=== PATIENT | male | born 1940 | race Caucasian/White ===

== ENCOUNTER 2025-01-15 11:26 | Outpatient (AMB) | payer MEDICARE, OTHER, SELFPAY ==
--- OUTSIDE RECORDS SUMMARY | 2024-12-19 09:15 | XMS_ITS ---
Author Organization [facility] [place] Address [address] [place] [address] Care Team Providers Care Typesetting Machine Tender Name Role Phone Kong Kern Unavailable [phone] Allergies Allergen (clinical drug ingredient) Drug/Non Drug Allergy documented on EMR Reaction Allergy Type Onset Date Status Cymbalta Unknown Drug Allergy Active REASON FOR VISIT FMLA, more tired and more confusion, DARK URINE Medications Medication SIG (Take, Route, Frequency, Duration) Notes Start Date End Date Status OptiChamber Advantage-Lg Mask Active OLANZapine 7.5 MG Tablet 1 tablet Orally Once a day Active Loratadine 10 MG Tablet 1 tablet Orally Once a day Active Lisinopril 30 MG Tablet 1 tablet Orally Once a day Active Finasteride 5 MG Tablet 1 tablet Orally Once a day Active Chlorthalidone 25 MG Tablet 1 tablet in the morning with food Orally Active Atorvastatin Calcium 40 MG Tablet 1 tablet Orally Once a day Active Tamsulosin HCl 0.4 MG Capsule 1 capsule Orally Once a day Active Albuterol Sulfate HFA 108 (90 Base) MCG/ACT Aerosol Solution 1 puff as needed Inhalation every 4 hrs Active Digoxin 125 MCG Tablet 1 tablet Orally Active Eliquis 5 MG Tablet as directed Orally Active DULoxetine HCl 30 MG Capsule Delayed Release Particles 1 capsule Orally Once a day Active Social History Section Notes: DENIES SMOKING DENIES DRINKING CAFFEINE 1/2 CUP DAILY COFFEE Vital Signs Temperature 95.7 degrees Fahrenheit 12/20/19 25 Blood pressure systolic 121 mm Hg 12/20/19 25 Blood pressure diastolic 82 mm Hg 025 Heart Rate 75 /min 12/19/2024 Respiratory Rate 12 /min 12/19/2024 Height 72 in 12/19/2024 Weight 200 lbs 12/19/2024 BMI 27.12 kg/m2 12/19/2024 Oximetry 95 % 12/19/2024 Height-cm 182.88 cm 12/19/2024 Weight-kg 90.72 kg 12/19/2024 Encounters Encounter Location Date Provider Diagnosis [facility] [place] [address] [place] [address] 12/19/2024 Kong Kern Assessments Encounter Date Diagnosis (ICD Code) Assessment Notes Treatment Notes Treatment Clinical Notes Section Notes 12/19/2024 LABS URIN E Plan Of Treatment Next Appt Details Provider Name:Kong Kern , 02/07/2025 09:45:00 AM, [address], [address], [place], [address], [phone] Progress Notes * MEGAN GUNNDOB:[birth year] (84 yo M)Acc No.[id number]:12/19/2024 Progress Notes Patient: MEGAN WATSON Provider: Stella DONOVAN :1940 A ge:84 Y S ex:Male Date:12/19/2024 Address:[address] [place], [place] [id number] Subjective: * Chief Complaints: * F MLAMore tired and more confusionDARK URINE * Medical History: Dr Munson-urology DR VENTURA NEUROLOGY DR OSMAN CT PRIMARY DR IZAGUIRRE PODIATRY * Surgical History: KIDNEY REMOVED 2009 Surgical History verified. * Hospitalization/Major Diagno stic Procedure: KIDNEY REMOVED Hospitalization Verified. * Family History: HEALTH CARE PROXY AKHIL GUNN-. * Social History: D ENIES SMOKING DENIES DRINKING CAFFEINE 1/2 CUP DAILY COFFEE. * Medications: T akingTamsulosin HCl 0.4 MG Capsule 1 capsule Orally Once a day OptiChamber Advantage-Lg Mask OLANZapine 7.5 MG Tablet 1 tablet Orally Once a day Loratadine 10 MG Tablet 1 tablet Orally Once a day Lisinopril 30 MG Tablet 1 tablet Orally Once a day Finasteride 5 MG Tablet 1 tablet Orally Once a day Eliquis 5 MG Tablet as directed Orally DULoxetine HCl 30 MG Capsule Delayed Release Particles 1 capsule Orally Once a day Digoxin 125 MCG Tablet 1 tablet Orally Chlorthalidone 25 MG Tablet 1 tablet in the morning with food Orally Atorvastatin Calcium 40 MG Tablet 1 tablet Orally Once a day Albuterol Sulfate HFA 108 (90 Base) MCG/ACT Aerosol Solution 1 puff as needed Inhalation every 4 hrs Taking Tamsulosin HCl 0.4 MG Capsule 1 capsule Orally Once a day Taking OptiChamber Advantage-Lg Mask Taking OLANZapine 7.5 MG Tablet 1 tablet Orally Once a day Taking Loratadine 10 MG Tablet 1 tablet Orally Once a day Taking Lisinopril 30 MG Tablet 1 tablet Orally Once a day Taking Finasteride 5 MG Tablet 1 tablet Orally Once a day Taking Eliquis 5 MG Tablet as directed Orally Taking DULoxetine HCl 30 MG Capsule Delayed Release Particles 1 capsule Orally Once a day Taking Digoxin 125 MCG Tablet 1 tablet Orally Taking Chlorthalidone 25 MG Tablet 1 tablet in the morning with food Orally Taking Atorvastatin Calcium 40 MG Tablet 1 tablet Orally Once a day Taking Albuterol Sulfate HFA 108 (90 Base) MCG/ACT Aerosol Solution 1 puff as needed Inhalation every 4 hrs * Allergies: C ymbaltayesAllergies Verified. Objective: * Vitals: B P: 121/82 mm Hg, HR: 75 /min, RR: 12 /min, Temp: 95.7 F, Oxygen sat %: 95 %, Ht: 72 in, Wt: 200 lbs, BMI: 27.12 Index, Wt-k.72 kg, Ht-cm: 182.88 cm, Body Surface Area: 2.14. Assessment: * Assessment: LABS URINE * Electronic signature of Gadiel Kern PA-C on 01/15/2025 at 12:40 PM EDT Sign off status: Pending * Provider: Stella DONOVAN Date: 12/19/2024 Generated for Meg euceda/Enio/Delvis on: 01/15/2025 12:40 PM EDT
--- OUTSIDE RECORDS SUMMARY | 2025-01-03 08:58 | XMS_ITS ---
Author Name [facility] Organization [facility] Address [address] [place] [address] Care Team Providers Care Nremt Name Role Phone MEGAN OSMAN Primary Care Provider Unavailabl e Insurance Providers: All historical and current Section Date Range: From patient's date of to the date document was created. This section includes the names of all active insurance providers for the patient. Insurance Provider Type of Coverage Plan Name Start of Policy Coverage End of Policy Coverage Group Number Member ID Insurance Provider's Telephone Number Policy Varela's Name Patient's Relationship to Policy Varela MEDICARE (WNR) MEDICARE (M) PART A Mar 20, 2005 PART A [id number] SUZIET III,HOWAR D PATIENT MEDICARE (WNR) MEDICARE (M) PART B Mar 20, 2005 PART B [id number] MERCHANT III,HOWAR D PATIENT MEDICARE (WNR) MEDICARE (M) PART A Mar 20, 2005 PART A [id number] [phone] [id number] MEGAN GUNN PATIENT MEDICARE (WNR) MEDICARE (M) PART B Mar 20, 2005 PART B [id number] SUZIEMEGAN Newman PATIENT FOR LIFE TFL* Jan 23, 2010 [id number] ZEYADROMINAMEGAN Newman PATIENT [place] [id number] PRIME ACTIV E DUTY Jun 20, 2017 NONE [id number] MEGAN GUNN PATIENT -FO R-LIFE TFL [facility] Jan 26, 2012 [id number] MEGAN GUNN PATIENT Selected Encounter This section includes the information on record at [place] for the Encounter. Date/Time Encounter Type Encounter Description Reason Provider Source Jan 03, 2025 12:58 PM CASE MANAGEMENT PRIMARY CARE/MEDICINE ICD-10-CM Z71.9 Counseling, unspecified JEANINE VALERA [facility] Encounter Template Text not used by [place] Assessments - Encounter Diagnoses This section includes the primary and secondary diagnoses documented for the Encounter. Date/Time Primary/Secondary Diagnosis Diagnosis Name Provider Source Jan 03, 2025 03:10 PM PRIMARY Counseling, unspecified TOSIN VALERA [facility] Plan of Treatment: Future Appointments (+ 6 months) and Future Tests (+/- 45 days) The Plan of Treatment section includes future care activities for the patient from all [place] treatmentfacilities. This section includes future appointments and future orders which are active, pending or scheduled. Future Appointments This section includes appointments that were scheduled to occur 6 months from the date of the Encounter, up to a maximum of 20 appointments. The data comes from all [place] treatment facilities. Appointment Date/Time Appointment Type Appointme nt Facility Name Feb 25, 2025 10:30 AM AM[facility]ORY [facility] MEDICINE [facility] Mar 28, 2025 09:00 AM AMBULATORY - MEDICINE [facility] Social History: Smoking Status (Most current) and Tobacco Use (All prior to encounter date) This section includes the most current, and the historical, smoking and tobacco- related health factors from the [place] facility where the Encounter took place. Current Smoking Status This section includes the most current smoking, or tobacco-related health factor, from the [place] facility where the Encounter took place. Date/Time Current Smoking Status Comment Facil ity Nov 23, 2024 10:00 AM VA-TOBACCO USE FOR PRASHANT CIGARETTES [facility] Tobacco Use History This section includes a history of the smoking, or tobacco-related health factors, that were collected on or before the date of the Encounter. The data comes from the [place] facility where the Encounter took place. Date/Time Smoking Status/Tobac co Use Comment Facility Nov 23, 2024 10:00 AM VA-TOBACCO USE FORMER CIGARETTES [facility] Nov 25, 2023 10:00 AM VA-TOBACCO FORMER USER [facility] [place] [facility] Nov 25, 2023 10:00 AM VA-TOBACCO QUIT 15 YRS OR MORE [facility] [place] [facility] Nov 19, 2022 10:00 AM VA-TOBACCO FORMER USER [facility] [place] [facility] Nov 19, 2022 10:00 AM VA-TOBACCO QUIT 15 YRS OR MORE [facility] [place] [facility] Nov 20, 2021 10:00 AM VA-TOBACCO FORMER USER [facility] [place] [facility] Nov 20, 2021 10:00 AM VA-TOBACCO QUIT 15 YRS OR MORE [facility] [place] [facility] Nov 21, 2020 09:00 AM VA-TOBACCO FORMER USER [facility] [place] [facility] Nov 21, 2020 09:00 AM VA-TOBACCO QUIT 5 TO < 15 YRS [facility] [place] [facility] Sep 28, 2019 02:38 PM VA-TOBACCO NEVER USED [facility] [place] [facility] Sep 12, 2018 02:20 PM VA-TOBACCO FORMER USER [facility] [place] [facility] Sep 12, 2018 02:20 PM VA-TOBACCO QUIT 5 TO < 15 YRS [facility] [place] [facility] October 19, 2017 10:33 AM QUIT TOBACCO USE > 7 YEARS AGO PT QUIT 9 YRS AGO [facility] [place] [facility] November 16, 2016 11:11 AM QUIT TOBACCO USE > 7 YEARS AGO PT QUIT SMOKING 9 YRS AGO. [facility] [place] [facility] November 12, 2015 10:18 AM LIFETIME NON-TOBACCO USER [facility] [place] [facility] November 12, 2014 08:20 AM QUIT TOBACCO USE 1-7 YEARS AGO [facility] [place] [facility] Feb 22, 2013 09:06 AM QUIT TOBACCO USE 1-7 YEARS AGO PT QUIT 4 YEARS AGO. [facility] [place] [facility] Jan 20, 2012 08:53 AM QUIT TOBACCO USE 1-7 YEARS AGO [facility] Apr 16, 2002 02:26 PM CURRENT SMOKER smoker 40 years, requesting smoking cessation [facility] Encounter Notes: All associated encounter notes This section contains the clinical notes associated to the Encounter. Date/Time Encounter Note(s) Provider Source Jan 03, 2025 12:59 PM SOCIAL WORK NOTE: LOCAL TITLE: SOCIAL WORK NOTE STANDARD TITLE: SOCIAL WORK NOTE DATE OF NOTE: JAN 03, 2025@12:59 ENTRY DATE: JAN 03, 2025@12:59:40 AUTHOR: VINEET VALERA EXP COSIGNER: URGENCY: STATUS: COMPLETED Fisheries Management Biologist spoke to Akhil (/no auth) who reported I am not ready to have him go to a facility but I do need help as I was recently diagnosed with cancer and it will be hard for me to care for him and myself at the same time . We discussed options. Akhil decided we may have to private pay,Zaira archer came out 2 years ago and told us we make too much money. [facility] Encouraged Akhil to contact [employer], inquire about claim for increased service connection. Akhil requested caregiver and respite information emailed to [email or web address] which was successfully sent. Encouraged to contact senior copywriter and [place] prn. /ca/ JUNE ROJAS [facility] OFFICE MANAGER Signed: 01/03/2025 15:11 VINEET VALERA [facility]
--- NOTE | 2025-01-15 11:33 | MHC.OFFVIS ---
Intake Visit Reasons: 6M AD Accompanied by: Spouse Allergies No Known Allergies Allergy (Verified 01/15/25 11:33) Medication List - Last Reconciled 01/15/25 by Ruby Phillip CNP apixaban (Eliquis) 5 mg PO BID atorvastatin 40 mg PO DAILY chlorthalidone 25 mg PO DAILY digoxin PO duloxetine 30 mg PO DAILY finasteride 5 mg PO DAILY lisinopril 30 mg PO DAILY loratadine 10 mg PO DAILY olanzapine 7.5 mg PO BEDTIME sertraline 50 mg PO DAILY tamsulosin mg PO HPI Comments Details: He was here with his . He will be moving into assisted living facility in the next few weeks as his will be starting treatment for cancer. Memory declining, says he is very forgetful. Needs cueing and some help with dressing. Going to day program 3 days/week which he enjoys, playing bingo. Walking with walker, no falls. Appetite was okay. Mood was okay. No hallucinations or delusions. Sleep was okay. Seen at [facility] in 10/2023 for SI after he was tapered off sertraline and was off medication for few weeks. No SI/HI. Mood is much better with duloxetine. Around 2018, he began with short-term memory problems, particularly getting stuck for words, misplacing things, having some right/left orientation problems, judging distances, and having some difficulty with balance. Hx of hypertension, atrial fibrillation, and disrupted sleep. His ex- in [place]. His daughters live in [facility] and [place]. He tried memantine in the past with side effects. [facility] Medical History (Updated 01/15/25 @ 11:37 by Ruby Phillip CNP) Alzheimer dementia VINCE (obstructive sleep apnea) MCI (mild cognitive impairment) Ataxia Peripheral neuropathy Vascular dementia Review of Systems Const Denies chills, Denies daytime sleepiness, Reports difficulty sleeping, Denies fatigue, Denies fever(s), Denies frequent falls, Denies headache(s), Denies increased appetite, Denies poor appetite, Denies snoring, Denies weakness, Denies weight gain and Denies weight loss Eyes Denies loss of vision ENT Denies vertigo, Reports dizziness, Denies headache(s) and Denies neck pain Card Denies chest pain at rest, Denies chest pain with activity, Denies syncope, Denies leg edema, Denies palpitations, Denies dyspnea and Denies dyspnea on exertion Resp Denies cough, Denies dyspnea, Denies dyspnea on exertion and Denies snoring GI Denies abdominal pain, Denies constipation, Denies heartburn, Denies diarrhea and Denies nausea Reports urinary frequency, Denies urinary incontinence and Denies urinary urgency Musc Denies abnormal gait, Denies back pain, Denies myalgias, Denies arthralgias, Denies neck pain, Denies numbness and Denies tingling Neuro Denies abnormal gait, Denies vertigo, Reports dizziness, Denies syncope, Denies frequent falls, Denies headache(s), Denies lack of coordination, Denies loss of vision, Reports memory loss, Denies numbness, Denies Other visual disturbances, Denies restless legs, Denies seizure-like activity, Denies tingling, Denies paresthesias, Denies tremor(s) and Denies weakness Psych Denies anxiety, Reports depression, Denies auditory hallucinations, Reports memory loss and Denies visual hallucinations Endo Denies fatigue and Denies palpitations Physical Exam Const Other: General Appearance:? normal, in no acute distress. Heart:? S1, S2 normal, no murmurs. Lungs:? clear anteriorly and posteriorly. Musculoskeletal:? normal. Extremities:? no edema. Psych:? alert, as below Neuro Other: Abnormal Neurological Findings:?Walking with walker. MMSE 20/30. Mental Status: alert, as below. Cranial Nerves: Pupils are equal, round, and reactive to light. External ocular muscles are intact. Visual manuel are full, no ptosis. Face is symmetrical, no facial weakness or droop. Facial sensations are normal. Tongue protrudes in midline. Palate elevates symmetrically. Shoulder shrugging is normal Motor Examination: Normal muscle tone, bulk and strength. No atrophy or fasciculations. No drift of the extended upper extremities. DTR 2+. Plantars are flexor. Straight Leg Raisin degrees. Sensory Exam: Normal light touch, temperature, pinprick, vibration, and joint-position sensations. Rhomberg sign is absent. Coordination: No ataxia. No titubation. Ojzlxl-ir-xacb, gqvz-aabv-jkyr test, and rapid alternating movements were normal. Gait Exam: With walker. Cerebellar Signs: Czvhzo-ka-nmbz and irfj-zo-ccii is normal. No dysdiadochokinesia. Extrapyramidal System: No tremor, rigidity with normal facial expressions. No bradykinesia. No bradyphrenia. Normal arm swing and posture. No propulsion or retropulsion. Speech: Normal. No dysphasia or dysarthria. MMSE Level of Consciousness: Alert. Orientation: Knows correct year. Does not know year, month, date, or day. Knows correct city, county and state. Knows correct location and floor. Registration: Able to register 3 objects. Attention: Serial 7's performed accurately to 86. Recall: Able to recall 0 out of 3 objects. Language: Normal spontaneous speech, fluency, repetition, naming, comprehension, reading, and writing. Total Score: 20/30. Results Reviewed Results Reviewed: NCV/EMG LE 03/27/19 Sensory greater than motor peripheral neuropathy in the lower extremities. Normal EMG in the right L4-S1 innervated muscles. MRI shows moderate cerebral atrophy and white matter chronic microvacsular disease Assessment & Plan Assessment & Plan (1) Alzheimer dementia: Code(s): G30.9 - Alzheimer's disease, unspecified; F02.80 - Dementia in other diseases classified elsewhere, unspecified severity, without behavioral disturbance, psychotic disturbance, mood disturbance, and anxiety Category: Medical Qualifiers: Alzheimer's disease onset: unspecified onset Dementia severity: unspecified severity Dementia behavioral or psychological symptom: unspecified whether behavioral, psychotic, or mood disturbance or anxiety Qualified Code(s): G30.9 - Alzheimer's disease, unspecified; F02.80 - Dementia in other diseases classified elsewhere, unspecified severity, without behavioral disturbance, psychotic disturbance, mood disturbance, and anxiety Plan: Continue current treatment. Stay physically and socially active, use walker. (2) Peripheral neuropathy: Code(s): G62.9 - Polyneuropathy, unspecified Category: Medical Qualifiers: Peripheral neuropathy type: polyneuropathy, unspecified Qualified Code(s): G62.9 - Polyneuropathy, unspecified Plan Meds tried: memantine (side effects) Coding Level of Care Code Est Pt Level 4 (23099) Diagnoses Alzheimer's dementia, unspecified dementia severity, unspecified timing of dementia onset, unspecified whether behavioral, psychotic, or mood disturbance or anxiety G30.9; F02.80 Alzheimer's disease onset: unspecified onset Dementia severity: unspecified severity Dementia behavioral or psychological symptom: unspecified whether behavioral, psychotic, or mood disturbance or anxiety Peripheral polyneuropathy G62.9 Peripheral neuropathy type: polyneuropathy, unspecified
--- OUTSIDE RECORDS SUMMARY | 2025-01-15 12:40 | XMS_ITS | Clinical Summary ---
Author Organization [facility] Address [address] [place] [address] Care Team Providers Care Cell Feed Department Supervisor Name Role Phone Devyn Casas MD Primary Care Provider Allergies No known active allergies Medications Medication Sig Dispensed Refills Start Date End Date Status ATORVASTATIN CALCIUM PO Take by mouth. 0 Active digoxin (LANOXIN) 125 MCG tablet Take 1 tablet (125 mcg total) by mouth daily. 0 Active apixaban (ELIQUIS) 5 MG TABS tablet Take by mouth every 12 (twelve) hours. 0 Active lisinopril (PRINIVIL,ZESTRIL) tablet 40 mg Take 1 tablet (40 mg total) by mouth daily. 0 Active vitamin D3 (VITAMIN D3) 1000 units tablet Take 1 tablet (1,000 Units total) by mouth daily. 0 Active chlorthalidone (HYGROTON) 25 MG tablet Take 1 tablet (25 mg total) by mouth daily. 0 Active finasteride (PROSCAR) 5 MG tablet Take 1 tablet (5 mg total) by mouth daily. 0 Active tamsulosin (FLOMAX) 0.4 MG CAPS Take 1 capsule (0.4 mg total) by mouth daily. 0 Active loratadine (CLARITIN) 10 MG tablet Take 1 tablet (10 mg total) by mouth daily. 0 Active hydroCHLOROthiazide (MICROZIDE) 12.5 MG capsule Take 1 capsule (12.5 mg total) by mouth daily. 0 Active divalproex (DEPAKOTE) [address] tablet Take 1 tablet (500 mg total) by mouth 3 (three) times a day. 0 Active buPROPion (WELLBUTRIN XL) 150 MG 24 hr tablet Take 150 mg by mouth daily. 0 Active buPROPion (WELLBUTRIN) 100 MG tablet Take 1 tablet (100 mg total) by mouth 2 (two) times a day. 0 Active Active Problems Problem Noted Date Diagnosed Date Iron deficiency anemia 03/20/2019 Social History Tobacco Use Types Packs/Day Years Used Date Smoking Tobacco: Never Assessed Sex and Gender Information Value Date Recorded Sex Assigned at Not on file Gender Identity Not on file Sexual Orientation Not on file Job Start Date Occupation Industry Not on file Not on file Not on file Last Filed Vital Signs Vital Sign Reading Time Taken Comments Blood Pressure 154/70 09/17/2022 9:02 AM EDT Pulse 70 09/17/2022 9:02 AM EDT Temperature 36.8 C (98.3 F) 09/17/2022 9:02 AM EDT Respiratory Rate - - Oxygen Saturation 98% 09/17/2022 9:02 AM EDT Inhaled Oxygen Concentration - - Weight 93.4 kg (205 lb 12.8 oz) 09/17/2022 9:02 AM EDT Height 175.3 cm (5' 9 ) 09/17/2022 9:02 AM EDT Body Mass Index 30.39 09/17/2022 9:02 AM EDT Plan of Treatment Health Maintenance Due Date Last Done Comments COVID-19 Vaccine (#1) 1940 Depression Screening 1952 BMI Counseling 1958 Preventative Health Evaluation 1958 DTap / Tdap / Td (1 - Tdap) 1959 Shingrix-Zoster Vaccine (1 of 2) 1990 Fall Risk Assessment 2005 Pneumococcal Vaccine (1 of 1 - PCV) 2005 RSV Adult > 60+ Yrs or Pregn ant (1 - 1-dose 75+ series) 2015 Influenza Vaccine (#1) 2025 Hepatitis B Vaccines Aged Out No long er eligible based on patient's age to complete this topic RSV Ped < 20 months Aged Out No longe r eligible based on patient's age to complete this topic Care Teams Cell Feed Department Supervisor Relationship Specialty Start Date End Date Devyn Casas MD [address] [place] [id number] PCP - General Internal Medicine 03/15/19
--- OUTSIDE RECORDS SUMMARY | 2025-01-15 12:40 | XMS_ITS | Clinical Summary ---
Author Organization [facility]. Address [address] [address] Phone Care Team Providers Care Ceo And President Name Role Phone Devyn Casas MD Primary Care Provider [phone] Allergies No known active allergies Medications apixaban (Eliquis) 5 MG tablet Take 1 tablet by mouth 2 (two) times a day Active atorvastatin (LIPITOR) 40 MG tablet Take 1 tablet by mouth 1 (one) time each day 03/26/2016 Active chlorthalidone 25 MG tablet Take 1 tablet by mouth every morning Active cholecalciferol (VITAMIN D-3) 25 MCG (1000 UT) tablet Take 1 tablet by mouth 1 (one) time each day Active digoxin (LANOXIN) 125 MCG tablet Take 1 tablet by mouth every other day Active finasteride (PROSCAR) 5 MG tablet Take 1 tablet by mouth every morning Active loratadine (CLARITIN) 10 MG tablet Take 10 mg by mouth Active tamsulosin (FLOMAX) 0.4 MG 24 hr capsule Take 1 capsule by mouth 1 (one) time each day 11/06/2015 Active timolol (TIMOPTIC) 0.5 % ophthalmic solution INSTILL 1 DROP INTO LEFT EYE TWICE DAILY 06/05/2021 Active lisinopril (PRINIVIL,ZESTR IL) 30 MG tablet Take 1 tablet (30 mg total) by mouth 1 (one) time each day 30 tablet 11 06/09/2022 Active OLANZapine (ZyPREXA) 7.5 MG tablet Take 7.5 mg by mouth at bed time 05/03/2023 Active DULoxetine (CYMBALTA) [address] capsule 11/05/2014 Activ e Active Problems Problem Noted Date Diagnosed Date Chronic kidney disease 06/08/2021 Essential hypertension 06/08/2021 Iron deficiency anemia 03/20/2019 Family History Medical History Relation Comments Cancer Father Heart disease Mother Relation Status Comments Father Mother Social History Tobacco Use Types Packs/Day Years Used Date Smoking Tobacco: Former Cigarettes Q uit: 06/20/2008 Passive Smoke Exposure: Never Smokeless Tobacco: Never Tobacco Cessation:Counseling Given: No Alcohol Use Standard Drinks/Week Comments No 0 (1 standard drink = 0.6 oz pur e alcohol) Sex and Gender Information Value Date Recorded Sex Assigned at Not on file Legal Sex Male 5:10 PM EST Gender Identity Not on file Sexual Orientation Not on file Last Filed Vital Signs Vital Sign Reading Time Taken Comments Blood Pressure 108/66 06/06/2024 2:19 PM EST Pulse 58 06/06/2024 2:19 PM EST Temperature - - Respiratory Rate - - Oxygen Saturation 98% 06/08/2023 1:34 PM EST Inhaled Oxygen Concentration - - Weight 90.7 kg (200 lb) 06/06/2024 2:19 PM EST Height 180.3 cm (5' 11 ) 05/19/2020 12:01 PM EST Body Mass Index 27.89 05/19/2020 12:01 PM EST Plan of Treatment Upcoming Encounters Date Type Department Care Team (Late st Contact Info) Description 06/06/2025 1:45 PM EST Office [facility] [address] [id number] Luis Alexandre MD [address] [phone] Health Maintenance Due Date Last Done Comments Pneumococcal Vaccine: 50+ Ye ars (1 of 2 - PCV) 1959 Influenza Vaccine (#1) 2025 Hepatitis B Vaccine Aged Out No longe r eligible based on patient's age to complete this topic Insurance Medicare Medicare [facility] Care Teams Ceo And President Relationship Specialty Start Date End Date Devyn Casas MD [address] [place] [address] [address] [place] [address] PCP - General 06/30/20
--- OUTSIDE RECORDS SUMMARY | 2025-01-15 12:40 | XMS_ITS | Encounter Summary ---
Author Organization [facility] Address [address] [place] [address] Care Team Providers Care Machine Stoppage Frequency Checker Name Role Phone Devyn Casas MD Primary Care Provider [phone] Encounter Details Date Type Department Care Team (Late st Contact Info) Description 10/09/2024 Lab Requisition [facility] - Main Lab [address] [facility] [place] [phone] Kong Kern PA [address] [address] Acute upper respiratory infection, unspecified Social History Tobacco Use Types Packs/Day Years Used Date Smoking Tobacco: Former Cigarettes Smokeless Tobacco: Former Alcohol Use Standard Drinks/Week Comments Never 0 (1 standard drink = 0.6 oz pur e alcohol) Sex and Gender Information Value Date Recorded Sex Assigned at Not on file Legal Sex Male 12:24 AM EST Gender Identity Not on file Sexual Orientation Not on file documented as of this encounter Functional Status * Are you deaf or do you have serious difficulty hearing? Answer Date of Assessment Author No 05/03/2024 5:20 PM EST Alex Reynoso RN * Are you blind or do you have serious difficulty seeing, even when wearing glasses? Answer Date of Assessment Author No 05/03/2024 5:20 PM EST Alex Reynoso RN * Do you have serious difficulty walking or climbing stairs? Answer Date of Assessment Author No 05/03/2024 5:20 PM Alex Gurrola RN * Do you have serious difficulty dressing or bathing? Answer Date of Assessment Author Yes 05/03/2024 5:20 PM Alex Gurrola RN * Because of a physical, mental, or emotional condition, do you have serious difficulty doing errandsalone such as visiting the doctor? Answer Date of Assessment Author No 05/03/2024 5:20 PM Alex Gurrola RN documented as of this encounter Mental Status * Because of a physical, mental, or emotional condition, do you have serious difficulty concentrating, remembering, or making decisions? (5 years old or older) Answer Entry Date Author Yes 05/03/2024 5:20 PM Alex Gurrola RN documented in this encounter Plan of Treatment Not on file documented as of this encounter Procedures Procedure Name Priority Date/Time Associated Diagnosis Comments [id number], RSV, FLU A AND B QUALITATIVE RT-PCR, LOCAL REFERENCE LAB Routine 10/09/2024 11:50 AM EDT Acute upper respiratory infection, unspecified documented in this encounter Results * [id number], RSV, Influenza A and B qualitative RT-PCR (10/09/2024 11:50 AM EDT) [facility] SARS COV-2 Not Detected Not Detected LAB MOLECULAR DIAGNOSTICS METHOD 10/09/2024 10:28 PM EDT [facility] Comment: Disclaimer: The manner in which this information is used to guide patient care is the responsibility of the healthcare provider. Testing was performed using the Bjond Alinity m SARS-CoV-2 test. This test has been authorized by FDA under an Emergency Use Authorization (EUA). This test is only authorized for the duration of time the declaration that circumstances exist justifying the authorization of the emergency use of in vitro diagnostic tests for detection of SARS-CoV-2 virus and/or diagnosis of COVID-19 infection under section 564(b)(1) of the Act, 21 U.S.C. 360bbb- 3(b)(1), unless the authorization is terminated or revoked sooner. Fact sheet for Healthcare Providers can be found at: https://www.fda.gov/media/939522/download Fact sheet for Patients can be found at: https://www.fda.gov/media/705599/download Influenza A PCR Not Detected Not Detected LAB MOLECULAR DIAGNOSTICS METHOD 10/09/2024 10:28 PM EDT [facility] Influenza B PCR Not Detected Not Detected LAB MOLECULAR DIAGNOSTICS METHOD 10/09/2024 10:28 PM EDT [facility] RSV PCR Not Detected Not Detected LAB MOLECULAR DIAGNOSTICS METHOD 10/09/2024 10:28 PM EDT [facility] Swab Nasopharyngeal structure / Unknown 10/09/2024 11:50 AM EDT 10/09/2024 3:22 PM EDT us [facility] MICROBIOLOGY - GENERAL ORD ERABLES Final Result [facility] [address] [place] [address], documented in this encounter Visit Diagnoses Diagnosis Acute upper respiratory infection, unspecified documented in this encounter Care Teams Machine Stoppage Frequency Checker Relationship Specialty Start Date End Date Devyn Casas MD [address] [address] PCP - General Internal Medicine 03/15/19 documented as of this encounter
--- OUTSIDE RECORDS SUMMARY | 2025-01-15 12:41 | XMS_ITS ---
Author Name [facility] Organization Unknown Encounters Encounter Type Encounter Reason Primary Diagnosis Location Date Ambulatory [facility] 04/17/2024 Care Team Organization Name Specialty Phone Email Start Date End Da te [facility] 10/14/2024 [facility] Cedric Cisse Primary [facility] 08/29/2024 [facility] Devyn [facility] 01/05/2024 [facility] 04/27/2022
== END 2025-01-15 11:54 | disposition home or self-care (01) ==
LOC: HO.HSM 11:27
PROVIDERS: PCP Internal Medicine; Referring Provider Internal Medicine; Visit Provider Registered Nurse
DX: G30.9 Alzheimer's disease, unspecified (principal); F02.80 Dementia in other diseases classified elsewhere, unspecified severity, without behavioral disturbance, psychotic disturbance, mood disturbance, and anxiety; G62.9 Polyneuropathy, unspecified
CPT/HCPCS: 99214

== ENCOUNTER → 2025-01-15 11:26 | Outpatient (BNVA) | payer MEDICARE, OTHER, SELFPAY | PROVIDERS: PCP Internal Medicine; Referring Provider Internal Medicine; Visit Provider Registered Nurse | DX: G30.9 Alzheimer's disease, unspecified (principal); F02.80 Dementia in other diseases classified elsewhere, unspecified severity, without behavioral disturbance, psychotic disturbance, mood disturbance, and anxiety; G62.9 Polyneuropathy, unspecified | CPT/HCPCS: 99212 ==